=== PATIENT | female | born 1985 | race Hispanic/Latino ===

== ENCOUNTER 2018-09-18 17:30 | Observation (INO) | payer MEDICAID ==
[~2018-09-18] VITALS: Ht 152.4 cm; Wt 92.1 kg
[2018-09-18 18:46] LABS: APPEARANCE,URINE CLOUDY (CLEAR); BILIRUBIN,URINE NEGATIVE (NEGATIVE); COLOR,URINE YELLOW (YELLOW); GLUCOSE, URINE (UA) NEGATIVE (NEGATIVE); KETONES,URINE 5 mg/dL (NEGATIVE); LEUKOCYTE ESTERASE ,URINE SMALL (NEGATIVE); NITRATE,URINE NEGATIVE (NEGATIVE); OCCULT BLOOD,URINE SMALL (NEGATIVE); PROTEIN,URINE 30 (NEGATIVE)
[2018-09-18 18:55] LABS: AMPHET/METH SCREEN,URINE NEGATIVE (NEGATIVE); BARBITURATE SCREEN, URINE NEGATIVE (NEGATIVE); BENZODIAZEPINES SCREEN,URINE NEGATIVE (NEGATIVE); CANNABINOID SCREEN,URINE NEGATIVE (NEGATIVE); COCAINE SCREEN,URINE NEGATIVE (NEGATIVE); OPIATE SCREEN,URINE NEGATIVE (NEGATIVE); PHENCYCLIDINE SCREEN,URINE NEGATIVE (NEGATIVE)
[2018-09-18 19:33] LABS: BACTERIA,URINE Few /HPF (None Seen); MUCUS,URINE Rare LPF (None Seen); SQUAMOUS EPITHELIAL CELL,UR Few /HPF (0-2)
[2018-09-18] MEDS: LACTATED RINGERS 1000ML 1,000 ML IV SCH ×2 (19:51→23:03)
[2018-09-18] MEDS: AMPICILLIN 2GM+NS 100ML 100 ML IV SCH (20:52)
[2018-09-18] MEDS ORDERED: ONDANSETRON HCL MDV 20ML 2 MG/ML VIAL IVP PRN (23:15)
[2018-09-18] MEDS ORDERED: ACETAMINOPHEN EXTRA STRENGTH 500 MG TABLET PO PRN (23:15)
[2018-09-19] MEDS: AMPICILLIN 2GM+NS 100ML 100 ML IV SCH ×3 (03:06→14:31)
[2018-09-19] MEDS ORDERED: PREN-196 PO (05:05)
--- NOTE | 2018-09-19 07:09 | NUR ---
REPORT GIVEN TO POST NURSES
[2018-09-19 07:35] VITALS: BP 93/51
[2018-09-19] MEDS ORDERED: RANI150T7 PO (08:05)
[2018-09-19 11:30] VITALS: BP 94/52
[2018-09-19] MEDS: LACTATED RINGERS 1000ML 1,000 ML IV SCH (14:31)
[2018-09-19 16:23] VITALS: BP 111/64
--- NOTE | 2018-09-19 17:40 | NUR ---
DISCHARGE PT LEFT UNIT VIA WHEELCHAIR, ACCOMPANIED BY SIGNIFICANT OTHER. DENIED PAIN AND HAD NO COMPLAINTS. TRANSPORTED BY PERSONAL VEHICLE.
== END 2018-09-19 17:40 | disposition home or self-care (01) ==
LOC: EDH 17:30 → LDH 18:04 → WSH 23:50
PROVIDERS: ADMIT Obstetrics & Gynecology; ATTEND Obstetrics & Gynecology
DX: O23.42 Unspecified infection of urinary tract in pregnancy, second trimester (principal); O26.892 Other specified pregnancy related conditions, second trimester; R10.9 Unspecified abdominal pain; R19.7 Diarrhea, unspecified; Z3A.22 22 weeks gestation of pregnancy; Z23 Encounter for immunization; Z79.899 Other long term (current) drug therapy
CPT/HCPCS: 80305; 81001; 96361 ×2; 96365; 96366; 99284; G0008; G0378 ×24; J0290 ×3; J7120 ×3; Q2035; 96360